=== PATIENT | female | born 1950 | race Caucasian/White ===

== ENCOUNTER 2016-11-17 16:06 | Outpatient (CLI) | payer MEDICARE, OTHER | END 2016-11-17 16:07 | disposition home or self-care (01) | DX: M79.672 Pain in left foot (principal) ==

== ENCOUNTER 2017-07-05 11:04 | Outpatient (CLI) | payer MEDICARE, OTHER ==
[2017-07-05 18:02] LABS: ALBUMIN/GLOBULIN RATIO 1.5 (1.0-2.2); BILIRUBIN,TOTAL 1.1 mg/dL (0.2-1.0); BUN - BLOOD UREA NITROGEN 13 mg/dL (6-20); CALCIUM 9.3 mg/dL (8.5-10.3); CARBON DIOXIDE - CO2 27 mmol/L (21-32); CHLORIDE 105 mmol/L (101-111); CHOL/HDL RATIO 2.2 (<4.4); CHOLESTEROL 215 mg/dL; CREATININE 0.7 mg/dL (0.4-1.0); GFR - MDRD 83 (>89); GLUCOSE 90 mg/dL (70-100); HDL CHOLESTEROL 96 mg/dL; LDL/HDL RATIO 1.1 (<4.4); POTASSIUM 3.8 mmol/L (3.5-5.0); SODIUM 138 mmol/L (135-145); TOTAL PROTEIN 7.2 g/dL (6.7-8.2); TRIGLYCERIDES 69 mg/dL; VLDL CHOLESTEROL 14 mg/dL
[2017-07-05 18:05] LABS: HEMOGLOBIN A1C 0.48 g/dL
[2017-07-05 18:07] LABS: THYROID STIMULATING HORMONE 0.86 uIU/mL (0.34-5.60)
[2017-07-05 19:51] LABS: FOLATE > 49.60 ng/mL (5.90 - >24.8)
[2017-07-10 13:23] LABS: TEST RESULT REPORT
== END 2017-07-05 11:05 | disposition home or self-care (01) ==
LOC: LAB.F 11:04
PROVIDERS: ATTEND Registered Nurse
DX: E03.9 Hypothyroidism, unspecified (principal); R73.01 Impaired fasting glucose; Z13.6 Encounter for screening for cardiovascular disorders; K13.70 Unspecified lesions of oral mucosa
CPT/HCPCS: 36415; 80053; 80061; 81599; 82607; 82746; 83036; 84207; 84443; 84630

== ENCOUNTER 2017-07-09 10:01 | Outpatient (CLI) | payer MEDICARE, OTHER | END 2017-07-09 10:02 | disposition home or self-care (01) | LOC: LAB.S 10:01 | PROVIDERS: ATTEND Registered Nurse | DX: E03.9 Hypothyroidism, unspecified (principal); Z13.6 Encounter for screening for cardiovascular disorders; R73.01 Impaired fasting glucose; K13.70 Unspecified lesions of oral mucosa | CPT/HCPCS: 36415; 84630 ==

== ENCOUNTER 2017-07-17 09:09 | Outpatient (CLI) | payer MEDICARE, OTHER ==
--- NOTE | 2017-07-17 10:09 | XRAY Report ---
EXAM: CHEST RADIOGRAPHY EXAM DATE: 07/17/2017 09:53 AM. CLINICAL HISTORY: COUGH. COMPARISON: None. TECHNIQUE: 2 views. FINDINGS: Lungs/Pleura: No focal opacities evident. No pleural effusion. No pneumothorax. No vascular congestio n. Normal volumes. Mediastinum: Heart and mediastinal contours are unremarkable. Other: None. IMPRESSION: Normal 2-view chest radiography. [facility] Referring Provider Line: [phone] SITE ID: [id number]
--- NOTE | 2017-07-19 11:53 | DEXA Report ---
DEXA SCAN: 07/17/2017 CLINICAL INDICATION: Osteopenia. TECHNIQUE: Dual energy x-ray absorptiometry (DXA) was performed on a [employer] system. Regions measured are the AP spine, femoral neck, and, if needed, forearm. COMPARISON: None. In accordance with the International Society for Clinical Densitometry (ISCD) guidelines, data from previous exams may be reanalyzed using current recommendations and techniques. This is done to allow a more accurate basis for comparison with the current study. FINDINGS: The data for the lumbar spine is as follows: REGION BMD (g/cm/cm) T-SCORE Z-SCORE L1 0.898 -1.9 0.0 L2 1.019 -1.5 0.5 L3 1.074 -1.1 0.9 L4 1.147 -0.4 1.5 TOTAL 1.047 -1.1 0.9 NOTE: All evaluable vertebrae are used for classification. The data for the hip is as follows: REGION BMD (g/cm/cm) T-SCORE Z-SCORE Neck 0.802 -1.7 0.1 TOTAL 0.872 -1.1 0.5 IMPRESSION: THE WHO CLASSIFICATION BASED ON THE INTERNATIONAL REFERENCE STANDARD IS OSTEOPENIA. THE FRACTURE RISK IS INCREASED. RECOMMENDATION: Patients with diagnosis of osteoporosis or osteopenia should have regular bone mineral density assessment. For those eligible for Medicare, routine testing is allowed once every 2 years. Testing frequency can be increased for patients who have rapidly progressing disease or for those who are receiving medical therapy to restore bone mass. COMMENT: World Health Organization (WHO) definitions for osteoporosis and osteopenia: NORMAL BMD: T-score at 1.0 or higher, fracture risk is low. OSTEOPENIA BMD: T-score between 1.0 and -2.5, fracture risk is increased. OSTEOPOROSIS BMD: T-score at 2.5 or lower, fracture risk high. National Osteoporosis Foundation recommends: 1. Obtain adequate dietary calcium (at least 1200 mg per day) and vitamin D (400 -800 international units per day). 2. Participate, as appropriate, in regular weightbearing and muscle- strengthening exercise. 3. Avoid tobacco use and reduce alcohol and caffeine intake. 4. For more detailed information see the website at www.NOF.org. IRINEO/ TD: 07/18/2017 10:24 [facility]
== END 2017-07-17 09:10 | disposition home or self-care (01) ==
LOC: DI 09:09
PROVIDERS: ATTEND Registered Nurse
DX: M85.89 Other specified disorders of bone density and structure, multiple sites (principal); N95.8 Other specified menopausal and perimenopausal disorders; R05 Cough
CPT/HCPCS: 71020; 77080

== ENCOUNTER 2017-07-17 09:10 | Outpatient (CLI) | payer MEDICARE, OTHER ==
--- NOTE | 2017-07-18 16:57 | Mammography Report ---
EXAM: DIGITAL BILATERAL SCREENING MAMMOGRAM: 07/17/2017 CLINICAL INDICATION: A 66-year-old with history of late childbearing, history of benign biopsy, for screening. TECHNIQUE: Routine CC and MLO projections were obtained of the breasts. Bilateral laterally exaggerated craniocaudal views. COMPARISON: 06/2016, 03/2015, 01/2014, 11/2012, 10/2011, 09/2010. FINDINGS: The breasts again demonstrate heterogeneously dense fibroglandular parenchyma bilaterally. Coarse and punctate, typically benign calcifications are present. No suspicious masses, clustered microcalcifications, or regions of architectural distortion are identified. IMPRESSION: BENIGN FINDINGS. RECOMMENDATIONS: Routine annual screening unless otherwise clinically indicated. BIRADS CATEGORY 2-BENIGN FINDINGS. STANDARD QUALIFYING STATEMENTS: 1. This examination was reviewed with the aid of Computer-Aided Detection (CAD) . 2. A negative or benign imaging report should not delay biopsy if clinically suspicious findings are present. Consider surgical consultation if warranted. More than 5% of cancers are not identified by imaging. 3. Dense breasts may obscure an underlying neoplasm. TD: 07/18/2017 16:56 SAMREEN
== END 2017-07-17 09:11 | disposition home or self-care (01) ==
LOC: DI 09:10
PROVIDERS: ATTEND Registered Nurse
DX: Z12.31 Encounter for screening mammogram for malignant neoplasm of breast (principal)
CPT/HCPCS: 77067

== ENCOUNTER 2018-11-29 08:47 | Outpatient (CLI) | payer MEDICARE, OTHER ==
--- NOTE | 2018-11-29 10:17 | Mammography Report ---
Reason: ENCOUNTER FOR SCREENING MAMMOGRAM FOR MALIGNANT NE Procedure Date: 11/29/2018 Accession Number: [id number] / [id number] Procedure: KENNEDY - Screening Mammo w/[facility] CPT Code: FULL RESULT: EXAM: Screening Mammo w/[facility] DATE: 11/29/2018 9:13 AM CLINICAL HISTORY: Routine screening TECHNIQUE: (B) - Bilateral CC and MLO views COMPARISON: 07/17/2017, 06/29/2016, 04/15/2015, 02/26/2014 PARENCHYMAL PATTERN: (D) - The breasts demonstrate heterogeneously dense fibroglandular parenchyma bilaterally. FINDINGS: There is no significant interval change. There are no suspicious masses, calcifications, or areas of distortion. IMPRESSION: Negative examination. BI-RADS category 1. RECOMMENDATION: (ANNUAL) - Recommend routine annual screening mammography. BI-RADS CATEGORY: (1) - Negative. STANDARD QUALIFYING STATEMENTS: 1. This examination was not reviewed with the aid of Computer-Aided Detection (CAD). 2. A negative or benign imaging report should not preclude biopsy if clinically suspicious findings are present. 3. Dense breasts may obscure an underlying neoplasm. 4. This examination was reviewed with the aid of 3D breast imaging (tomosynthesis).
== END 2018-11-29 08:48 | disposition home or self-care (01) ==
LOC: DI 08:47
PROVIDERS: ATTEND Registered Nurse
DX: Z12.31 Encounter for screening mammogram for malignant neoplasm of breast (principal)
CPT/HCPCS: 77063; 77067

== ENCOUNTER 2019-12-16 13:47 | Outpatient (CLI) | payer MEDICARE, OTHER ==
--- NOTE | 2019-12-16 17:32 | MRI Report ---
Reason: PAIN IN RIGHT SHOULDER Procedure Date: 12/16/2019 Accession Number: [id number] / [id number] Procedure: MRI - Shoulder RT W/O CPT Code: Final Report FULL RESULT: EXAM: RIGHT SHOULDER MRI WITHOUT CONTRAST. EXAM DATE: 12/16/2019 03:03 PM. CLINICAL HISTORY: Pain in right shoulder. COMPARISON: None. TECHNIQUE: Multiplanar, multisequence T1-weighted and fluid-sensitive sequences of the shoulder without contrast. Other: None. FINDINGS: Rotator cuff: Low-grade intrasubstance insertional tear at the junction of the supraspinatus and infraspinatus approximately 3 x 5 mm. Moderate patchy increased T2 signal involving the distal supraspinatus and infraspinatus. Fluid signal along the upper musculotendinous junction of the infraspinatus measures approximately 1.5 x 0.4 x 0.5 cm and may represent fluid tracking from a more distal area of tear or fraying. No rotator cuff muscle atrophy or fatty replacement. Long head biceps tendon: Intact demonstrating normal course, signal and morphology. Labrum: Small tear at the base of the upper posterior labrum. Remainder of the labrum appears intact. Bones and articular surfaces: No significant joint effusion. No full-thickness articular cartilage defects. Acromioclavicular joint: Deformity and truncation of the distal clavicle may relate to old trauma versus previous partial resection. Type II acromion. Trace fluid in the subacromial subdeltoid bursa. IMPRESSION: 1. Moderate supraspinatus and infraspinatus tendinosis. 2. Small focus of a low-grade intrasubstance insertional tear at the junction of the supraspinatus and infraspinatus. 3. Tiny focal tear at the upper posterior glenoid labrum. Remainder of the labrum appears intact. [facility]
== END 2019-12-16 13:48 | disposition home or self-care (01) ==
LOC: DI 13:47
PROVIDERS: ATTEND Registered Nurse
DX: M75.81 Other shoulder lesions, right shoulder (principal); M75.101 Unspecified rotator cuff tear or rupture of right shoulder, not specified as traumatic; S43.431A Superior glenoid labrum lesion of right shoulder, initial encounter

== ENCOUNTER 2020-02-02 09:46 | Outpatient (CLI) | payer MEDICARE, OTHER ==
--- NOTE | 2020-02-02 11:09 | DEXA Report ---
Reason: DISORDER OF BONE Procedure Date: 02/02/2020 Accession Number: [id number] / [id number] Procedure: DEX - Dexa Spine and/or Hip CPT Code: Final Report FULL RESULT: PROCEDURE: Dexa Spine and/or Hip INDICATIONS: DISORDER OF BONE TECHNIQUE: Dual energy x-ray absorptiometry (DXA) was performed on a [employer] System. Regions measured are the AP Spine, femoral neck, and if needed forearm. COMPARISON: None. FINDINGS: Lumbar Spine: Bone Mineral Density 1.161 g/cm/cm,T score -0.3, normal Hip: Bone Mineral Density 0.872 g/cm/cm,T score -1.1, osteopenia Femoral Neck: Bone Mineral Density 0.814 g/cm/cm, T score -1.6, osteopenia (T score greater or equal to -1.0: NORMAL) (T score from -1.1 to -2.4: OSTEOPENIA) (T score less than or equal to -2.5 to: OSTEOPOROSIS) Impression: Osteopenia. Patients with diagnosis of osteoporosis or osteopenia should have regular bone mineral density assessment. For those eligible for Medicare, routine testing is allowed once every 2 years. Testing frequency can be increased for patients who have rapidly progressing disease or for those who are receiving medical therapy to restore bone mass. Reviewed by: Sheryl Alvarado MD, PhD on 02/02/2020 11:07 AM PDT Approved by: Sheryl Alvarado MD, PhD on 02/02/2020 11:07 AM PDT Station ID: [id number]
== END 2020-02-02 09:47 | disposition home or self-care (01) ==
LOC: DI 09:46
PROVIDERS: ATTEND Registered Nurse
DX: M85.89 Other specified disorders of bone density and structure, multiple sites (principal); M25.511 Pain in right shoulder
CPT/HCPCS: 77080

== ENCOUNTER 2020-02-02 09:47 | Outpatient (CLI) | payer MEDICARE, OTHER ==
--- NOTE | 2020-02-03 11:49 | Mammography Report ---
BILATERAL DIGITAL SCREENING MAMMOGRAM 3D/2D: 02/02/2020 CLINICAL: Routine screening. Comparison is made to exams dated: 06/29/2016 mammogram, 11/29/2018 mammogram, 07/17/2017 mammogram, an d 04/15/2015 mammogram - [facility]. The tissue of both breasts is heterogeneously dense. This may lower the sensitivity of mammography. No significant masses, calcifications, or other findings are seen in either breast. There has been no significant interval change. IMPRESSION: NEGATIVE There is no mammographic evidence of malignancy. A 1 year screening mammogram is recommended. This exam was interpreted at Station ID: [id number]. NOTE: For mammograms, a report in lay terms will be sent to the patient. Approximately 15% of breast malignancies will not be visualized mammographically. In the management of a palpable breast mass, a negative mammogram must not discourage biopsy of a clinically suspicious lesion. Electronically Signed By: Ramesh Shields M.D. ddp/penrad:02/02/2020 14:01:48 ACR BI-RADS Category 1: Negative 3341F PARENCHYMAL PATTERN: (D) - The breast(s) demonstrate(s) heterogeneously dense fibroglandular angelina zuñiga. BI-RADS CATEGORY: (1) - 1 RECOMMENDATION: (ANNUAL) - Recommend routine annual screening mammography. [id number] 1 year screening LATERALITY: (B)
== END 2020-02-02 09:48 | disposition home or self-care (01) ==
LOC: DI 09:47
PROVIDERS: ATTEND Registered Nurse
DX: Z12.31 Encounter for screening mammogram for malignant neoplasm of breast (principal)
CPT/HCPCS: 77063; 77067

== ENCOUNTER 2021-02-06 15:24 | Outpatient (CLI) | payer MEDICARE, OTHER ==
--- NOTE | 2021-02-07 11:57 | Mammography Report ---
BILATERAL DIGITAL SCREENING MAMMOGRAM 3D/2D WITH EXAGGERATED CC: 02/06/2021 CLINICAL: Routine screening. Comparison is made to exams dated: 02/02/2020 mammogram, 11/29/2018 mammogram, 07/17/2017 mammogram, and 06/29/2016 ultrasound - [facility]. The tissue of both breasts is heterogeneously dense. This may lower the sensitivity of mammography. No significant masses, calcifications, or other findings are seen in either breast. There has been no significant interval change. IMPRESSION: NEGATIVE There is no mammographic evidence of malignancy. A 1 year screening mammogram is recommended. This exam was interpreted at Station ID: [id number]. NOTE: For mammograms, a report in lay terms will be sent to the patient. Approximately 15% of breast malignancies will not be visualized mammographically. In the management of a palpable breast mass, a negative mammogram must not discourage biopsy of a clinically suspicious lesion. Electronically Signed By: Ramesh Shields M.D. ddlady/delbert:02/07/2021 09:31:17 ACR BI-RADS Category 1: Negative 3341F PARENCHYMAL PATTERN: (D) - The breast(s) demonstrate(s) heterogeneously dense fibroglandular angelina zuñiga. BI-RADS CATEGORY: (1) - 1 RECOMMENDATION: (ANNUAL) - Recommend routine annual screening mammography. [id number] 1 year screening LATERALITY: (B)
== END 2021-02-06 15:25 | disposition home or self-care (01) ==
LOC: DI.S 15:24
PROVIDERS: ATTEND Registered Nurse
DX: Z12.31 Encounter for screening mammogram for malignant neoplasm of breast (principal)

== ENCOUNTER 2022-02-08 08:47 | Outpatient (CLI) | payer MEDICARE, OTHER ==
--- NOTE | 2022-02-09 12:29 | Mammography Report ---
BILATERAL DIGITAL SCREENING MAMMOGRAM 3D/2D WITH EXAGGERATED CC: 02/08/2022 CLINICAL: Routine screening. Comparison is made to exams dated: 02/06/2021 mammogram, 02/02/2020 mammogram, 11/29/2018 mammogram, and 07/17/2017 mammogram - [facility]. The tissue of both breasts is heterogeneously d ense. This may lower the sensitivity of mammography. No significant masses, calcifications, or other findings are seen in either breast. There has been no significant interval change. IMPRESSION: NEGATIVE There is no mammographic evidence of malignancy. A 1 year screening mammogram is recommended. Based on the Tyrer Cuzick model (a risk assessment model) the patients lifetime risk is 7.9% and her 10 year risk is 5.9%. According to the ACR, ACS, and NCCN guidelines, an annual breast MRI exam jae g with mammogram is recommended if the patients lifetime risk is 20% or greater. This exam was interpreted at Station ID: [id number]. NOTE: For mammograms, a report in lay terms will be sent to the patient. Approximately 15% of breast malignancies will not be visualized mammographically. In the management of a palpable breast mass, a negative mammogram must not discourage biopsy of a clinically suspicious lesion. Electronically Signed By: Fernando espinosa/delbert:02/08/2022 12:01:33 ACR BI-RADS Category 1: Negative 3341F PARENCHYMAL PATTERN: (D) - The breast(s) demonstrate(s) heterogeneously dense fibroglandular parjovani ma. BI-RADS CATEGORY: (1) - 1 RECOMMENDATION: (ANNUAL) - Recommend routine annual screening mammography. [id number] 1 year screening LATERALITY: (B)
== END 2022-02-08 08:48 | disposition home or self-care (01) ==
LOC: DI.S 08:47
PROVIDERS: ATTEND Registered Nurse
DX: Z12.31 Encounter for screening mammogram for malignant neoplasm of breast (principal)

== ENCOUNTER 2022-07-11 08:00 | Outpatient (CLI) | payer MEDICARE, OTHER ==
[2022-07-11 23:12] LABS: INFLUENZA A- RESP PCR PANEL NOT DETECTED; INFLUENZA B - RESP PCR PANEL NOT DETECTED; RSV- RESP PCR PANEL NOT DETECTED
[2022-07-12 08:46] LABS: SARS-CoV-2 -RESP PCR PANEL DETECTED
== END 2022-07-11 23:59 | disposition home or self-care (01) ==
LOC: LAB.S 08:00
PROVIDERS: ATTEND Emergency Medicine
DX: U07.1 COVID-19 (principal)
CPT/HCPCS: 87637

== ENCOUNTER 2023-01-01 09:56 | Outpatient (CLI) | payer MEDICARE, OTHER ==
--- NOTE | 2023-01-01 12:33 | DEXA Report ---
PROCEDURE: Dexa Spine and/or Hip INDICATIONS: OSTEOPENIA TECHNIQUE: Dual energy x-ray absorptiometry (DXA) was performed on a [employer] System. Regions measur ed are the AP Spine, femoral neck, and if needed forearm. COMPARISON: 02/02/2020 FINDINGS: Lumbar Spine: Bone Mineral Density 1.1-4 g/cm/cm,T score -0.5. Normal, change from previous -0.6% Left Femoral Neck: Bone Mineral Density 0.792 g/cm/cm, T score -1.8. Osteopenia, change from previous -1.5% Left Hip: Bone Mineral Density 0.859 g/cm/cm,T score -1.2. Osteopenia (T score greater or equal to -1.0: NORMAL) (T score from -1.1 to -2.4: OSTEOPENIA) (T score less than or equal to -2.5 to: OSTEOPOROSIS) Impression: By WHO criteria, this patient has low bone density (osteopenia). No statistical interval change in bone minteral density of the lumbar spine. No statistical interval change in bone minteral density of the hip. Patients with diagnosis of osteoporosis or osteopenia should have regular bone mineral density assess ment. For those eligible for Medicare, routine testing is allowed once every 2 years. Testing frequ ency can be increased for patients who have rapidly progressing disease or for those who are receivin g medical therapy to restore bone mass. Reviewed by: Maria Eugenia Christy MD on 01/01/2023 12:32 PM PDT Approved by: Maria Eugenia Christy MD on 01/01/2023 12:32 PM PDT Station ID: [id number]
== END 2023-01-01 09:57 | disposition home or self-care (01) ==
LOC: DI 09:56
PROVIDERS: ATTEND Registered Nurse
DX: M85.89 Other specified disorders of bone density and structure, multiple sites (principal); N63.23 Unspecified lump in the left breast, lower outer quadrant

== ENCOUNTER 2023-01-01 09:56 | Outpatient (CLI) | payer MEDICARE, OTHER ==
--- NOTE | 2023-01-02 12:54 | Mammography Report ---
BILATERAL DIGITAL DIAGNOSTIC MAMMOGRAM 3D/2D: 01/01/2023 CLINICAL: Palpable left breast lump by physician. Due for bilateral imaging. Comparison is made to exams dated: 02/08/2022 mammogram, 02/06/2021 mammogram, 02/02/2020 mammogram, 11/29 mammogram, 07/17/2017 mammogram, and 06/29/2016 mammogram - [facility]. Both breasts are heterogeneously dense, which may obscure small masses (category c / 51-75% glandular tissue). No significant masses, calcifications, or other findings are seen in either breast. IMPRESSION: INCOMPLETE: NEEDS ADDITIONAL IMAGING EVALUATION There is no mammographic abnormality seen in the left breast to correspond with the palpable abnormal ity, however, targeted ultrasound of the left breast is recommended and will be performed immediatel y following this exam. Based on the Tyrer Cuzick model (a risk assessment model) the patients lifetime risk is 7.4% and her 10 year risk is 6.1%. According to the ACR, ACS, and NCCN guidelines, an annual breast MRI exam jae g with mammogram is recommended if the patients lifetime risk is 20% or greater. This exam was interpreted at Station ID: [id number]. NOTE: For mammograms, a report in lay terms will be sent to the patient. Approximately 15% of breast malignancies will not be visualized mammographically. In the management of a palpable breast mass, a negative mammogram must not discourage biopsy of a clinically suspicious lesion. Electronically Signed By: Mary Chand M.D. lk/:01/01/2023 10:38:55 ACR BI-RADS Category 0: Incomplete 3340F PARENCHYMAL PATTERN: (D) - The breast(s) demonstrate(s) heterogeneously dense fibroglandular parcobyy yogesh. BI-RADS CATEGORY: (0) - 0 Ultrasound [id number] Immediate follow-up LATERALITY: (B)
--- NOTE | 2023-01-02 12:54 | Ultrasound Report ---
LIMITED ULTRASOUND OF LEFT BREAST: 01/01/2023 CLINICAL: Palpable left breast lump. Comparison is made to exams dated: 02/08/2022 mammogram, 02/06/2021 mammogram, 02/02/2020 mammogram, 11/29 mammogram, 07/17/2017 mammogram, and 06/29/2016 ultrasound - [facility]. Color flow ultrasound of the left breast 4 o'clock region was performed on the areas of interest. Gr ay scale images of the real-time examination were reviewed. IMPRESSION: NEGATIVE There is no sonographic evidence of malignancy. There is no mammographic or sonographic abnormality seen in the left breast to correspond with abnorm ality palpated by the referring clinician at 4 o'clock, however, clinical followup is recommended. A 1 year screening mammogram is recommended. This exam was interpreted at Station ID: [id number]. Electronically Signed By: Mary Chand M.D. lk/:01/01/2023 10:58:00 Ultrasound BI-RADS: 1 Negative BI-RADS CATEGORY: (1) - 1 Mammogram [id number] 1 year screening LATERALITY: (B)
== END 2023-01-01 09:57 | disposition home or self-care (01) ==
LOC: DI 09:56
PROVIDERS: ATTEND Registered Nurse
DX: N63.23 Unspecified lump in the left breast, lower outer quadrant (principal)

== ENCOUNTER 2023-10-12 15:08 | Outpatient (CLI) | payer MEDICARE, OTHER ==
--- NOTE | 2023-10-12 17:23 | XRAY Report ---
PROCEDURE: Elbow 3+V RT INDICATIONS: RIGHT ARM PAIN TECHNIQUE: 3 views of the elbow were acquired. COMPARISON: None. FINDINGS: Bones: No fractures or dislocations. No suspicious bony lesions. Soft tissues: No effusion. No suspicious soft tissue calcifications or masses. IMPRESSION: No acute bony abnormality. Reviewed by: Lauro Perez MD on 10/12/2023 5:21 PM PDT Approved by: Lauro Perez MD on 10/12/2023 5:21 PM PDT Station ID: [id number]
--- NOTE | 2023-10-12 17:24 | XRAY Report ---
PROCEDURE: Wrist 3+V RT INDICATIONS: RIGHT ARM PAIN TECHNIQUE: 3 views of the wrist were acquired. COMPARISON: None. FINDINGS: Bones: Intra-articular fracture of the radial styloid. No significant angulation. Soft tissues: No suspicious soft tissue calcifications or masses. IMPRESSION: Intra-articular fracture of the radial styloid. Reviewed by: Lauro Perez MD on 10/12/2023 5:22 PM PDT Approved by: Lauro Perez MD on 10/12/2023 5:22 PM PDT Station ID: [id number]
== END 2023-10-12 15:09 | disposition home or self-care (01) ==
LOC: DI 15:08
PROVIDERS: ATTEND Physician Assistant
DX: S52.511A Displaced fracture of right radial styloid process, initial encounter for closed fracture (principal)

== ENCOUNTER 2023-11-15 10:00 | Outpatient (CLI) | payer MEDICARE, OTHER ==
--- NOTE | 2023-11-15 16:17 | XRAY Report ---
PROCEDURE: Wrist 3 View RT INDICATIONS: RIGHT WRIST PAIN TECHNIQUE: 3 views of the wrist were acquired. COMPARISON: 10/12/2023 FINDINGS: Bones: Generalized decreased osseous mineralization present. Distal radial fracture line shows remod eling and bridging callus. No displacement. Mild dorsal angulation Soft tissues: No suspicious soft tissue calcifications or masses. IMPRESSION: Healing distal radial fracture with mild dorsal angulation. Osteopenia and Reviewed by: Ethan Hughes MD on 11/15/2023 3:16 PM AKDT Approved by: Ethan Hughes MD on 11/15/2023 3:16 PM AKDT Station ID: [id number]
== END 2023-11-15 23:59 ==
LOC: DI.WOS 10:00
PROVIDERS: ATTEND Orthopaedic Surgery
DX: S52.501D Unspecified fracture of the lower end of right radius, subsequent encounter for closed fracture with routine healing (principal)

== ENCOUNTER 2023-12-14 08:58 | Outpatient (CLI) | payer MEDICARE, OTHER ==
--- NOTE | 2023-12-17 10:47 | Ultrasound Report ---
LIMITED ULTRASOUND OF RIGHT BREAST: 12/14/2023 CLINICAL: Focal right breast pain. Comparison is made to exams dated: 12/14/2023 mammogram, 01/01/2023 ultrasound, 01/01/2023 mammogram, 01/27 mammogram, 02/06/2021 mammogram, and 02/02/2020 mammogram - [facility]. Real-time ultrasound of the right breast retroareolar was performed. Fischer scale images of the real-t floyd examination were reviewed. No significant abnormalities were seen sonographically in the right breast. IMPRESSION: NEGATIVE There is no sonographic evidence of malignancy. There is no abnormality seen in the right breast to correspond with the pain in the sub-areolar depth , however, clinical correlation and clinical followup are recommended. Return to annual mammogram screening schedule is recommended. This exam was interpreted at Station ID: [id number]. Electronically Signed By: Yahir multani/delbert:12/14/2023 09:58:23 letter sent: No_Letter Ultrasound BI-RADS: 1 Negative BI-RADS CATEGORY: (1) - 1 Mammogram [id number] return to screening LATERALITY: (B)
--- NOTE | 2023-12-17 10:47 | Mammography Report ---
BILATERAL DIGITAL DIAGNOSTIC MAMMOGRAM 3D/2D WITH EXAGGERATED CC SPOT COMPRESSION: 12/14/2023 CLINICAL: Focal right breast pain. Due for bilateral exam. Comparison is made to exams dated: 01/01/2023 mammogram, 02/08/2022 mammogram, 02/06/2021 mammogram, 02/01 mammogram, 11/29/2018 mammogram, and 07/17/2017 mammogram - [facility]. Both breasts are heterogeneously dense, which may obscure small masses (category c / 51-75% glandular tissue). No significant masses, calcifications, or other findings are seen in either breast. IMPRESSION: INCOMPLETE: NEEDS ADDITIONAL IMAGING EVALUATION There is no abnormality seen in the right breast to correspond with the pain, however, ultrasound is recommended. Based on the Tyrer Cuzick model (a risk assessment model) the patient's lifetime risk is 6.9% and her 10 year risk is 6.2%. According to the ACR, ACS, and NCCN guidelines, an annual breast MRI exam jae g with mammogram is recommended if the patient's lifetime risk is 20% or greater. This exam was interpreted at Station ID: [id number]. NOTE: For mammograms, a report in lay terms will be sent to the patient. Approximately 15% of breast malignancies will not be visualized mammographically. In the management of a palpable breast mass, a negative mammogram must not discourage biopsy of a clinically suspicious lesion. Electronically Signed By: Yahir multani/penrad:12/14/2023 09:57:43 ACR BI-RADS Category 0: Incomplete 3340F PARENCHYMAL PATTERN: (D) - The breast(s) demonstrate(s) heterogeneously dense fibroglandular angelina zuñiga. BI-RADS CATEGORY: (0) - 0 Ultrasound [id number] Immediate follow-up LATERALITY: (B)
== END 2023-12-14 08:59 | disposition home or self-care (01) ==
LOC: DI 08:58
PROVIDERS: ATTEND Registered Nurse
DX: N64.4 Mastodynia (principal); R92.333 Mammographic heterogeneous density, bilateral breasts